=== PATIENT | male | born 1985 | race Caucasian/White ===

== ENCOUNTER → 2018-01-04 | Outpatient (CLI) | payer OTHER | LOC: M RAD 08:56 | DX: M47.896 Other spondylosis, lumbar region (principal) | CPT/HCPCS: 72110 ==

== ENCOUNTER → 2018-05-14 | Outpatient (CLI) | payer OTHER ==
--- NOTE | 2018-05-14 15:30 | REP ---
Lumbar spine MRI study without contrast: History: Back pain. Progressive. Comparison radiographs are from January 04, 2018. Technique: Sagittal and axial T1 and T2-weighted scans are acquired in the usual fashion with and without fat saturation. Sequences include spin echo, turbo spin-echo, and STIR imaging sequences. MRI findings: The study confirms the presence of bilateral L5 spondylolysis and a grade 1 L5-S1 spondylolisthesis. On MRI, the spondylolisthesis measures 4.8 mm. There is no observable thecal sac compression. Mild diffuse disc bulging is seen. There is mild bilateral neural foraminal narrowing. Mild facet hypertrophy is present bilaterally. At L4-5, there is disc space narrowing. There is a small central focal disc protrusion indenting the ventral margin of the thecal sac. No central canal stenosis or neural foraminal narrowing is seen. At L3-4, L2-3, and L1-2, there is no significant abnormality. The conus medullaris is normal in position and appearance at T12-L1. No extra vertebral abnormality is observed. Impression: Bilateral L5 spondylolysis and 4.8 mm grade 1 L5-S1 spondylolisthesis. Mild bilateral L5-S1 neural foraminal narrowing. Small central disc protrusion at L4-5. Otherwise negative. Electronically Signed by Tal Laura MD 05/14/2018 06:50 P
== END ==
LOC: M RAD 10:44
PROVIDERS: ATTEND Surgery
DX: M51.26 Other intervertebral disc displacement, lumbar region (principal); M43.16 Spondylolisthesis, lumbar region